=== PATIENT | male | born 1955 | race African-American/Black ===

== ENCOUNTER 2016-07-16 18:04 | Emergency (ER) | payer OTHER ==
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
[2016-07-16 19:04] VITALS: BP 121/67; PULSE 71; TEMP 98; BMI 17.4
[2016-07-16] MEDS ORDERED: IBUPROFEN 400 MG TABLET (FP) PO ONE ×2 (19:04→19:57)
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
== END 2016-07-16 19:58 | disposition home or self-care (01) ==
LOC: JERFT 18:04
DX: S39.012A Strain of muscle, fascia and tendon of lower back, initial encounter (principal); V43.52XA Car driver injured in collision with other type car in traffic accident, initial encounter; Y93.89 Activity, other specified; Y92.410 Unspecified street and highway as the place of occurrence of the external cause; Z87.891 Personal history of nicotine dependence; J45.909 Unspecified asthma, uncomplicated; I51.9 Heart disease, unspecified; R13.10 Dysphagia, unspecified
CPT/HCPCS: 72100-TC; 99281-25